=== PATIENT | female | born 1940 ===

== ENCOUNTER 2016-12-29 15:37 | Inpatient (IN) | payer OTHER, MEDICAID ==
[2016-12-29 15:38] VITALS: BMI 29.2
[2016-12-29 16:20] LABS: BASO # 0.2 K/uL (0.0-0.2); BASO % 2.3 % (0.0-2.0); EOS # 0.5 K/uL (0.0-0.7); EOS % 6.9 % (0.0-4.0); HEMATOCRIT 21.1 % (34.0-47.0); LYMPH % 26.6 % (20.0-40.0); MEAN CORPUSCULAR HEMOGLOBIN 16.5 pg (27.0-31.0); MEAN CORPUSCULAR HGB CONC 28.5 g/dL (33.0-37.0); MEAN PLATELET VOLUME 9.2 fl (7.2-11.7); MONO # 0.6 K/uL (0.0-0.8); MONO % 7.5 % (0.0-10.0); NEUT # 4.3 K/uL (1.8-7.0); NEUT % 56.7 % (50.0-75.0); NRBC % 0.1 % (0.0-0.0); RED CELL DISTRIBUTION WIDTH 21.7 % (11.5-14.5); WHITE BLOOD COUNT 7.5 K/uL (4.8-10.8)
[2016-12-29 16:22] LABS: BLOOD UREA NITROGEN 13 mg/dl (7-17); CALCIUM 9.4 mg/dL (8.4-10.2); CARBON DIOXIDE 26 mmol/L (22-30); CHLORIDE 103 mmol/L (98-107); GFR AFRICAN-AMERICAN > 60; GLUCOSE,RANDOM 200 mg/dL (65-105); SODIUM 141 mmol/l (132-148)
[2016-12-29 16:25] LABS: POTASSIUM 3.4 MMOL/L (3.6-5.0)
--- NOTE | 2016-12-29 16:26 | ED PDOC ---
HPI: General Adult Time Seen by Provider: 12/29/16 15:49 Chief Complaint (Nursing): Abnormal Labs Chief Complaint (Provider): Abnormal Labs History Per: Patient History/Exam Limitations: no limitations Onset/Duration Of Symptoms: Mins (prior to arrival) Current Symptoms Are (Timing): Still Present Additional Complaint(s): Ana Hendrix is a 76 year old female with previous medical history of hypercholesterolemia, hypertension, diabetes and COPD, who presents to the emergency department for a blood transfusion evaluation status post receiving call from PCP reporting hemoglobin level of 4 on recent bloodwork and advised to go to hospital for treatment. Patient reported increasing shortness of breath on exertion and positional dizziness but denied chest pain, fever, chills , cough, diarrhea, constipation, vaginal bleeding, dysuria, hematuria, bloody or tarry stools. She also stated that she had prior blood transfusions 9 months ago. PMD: Luis Carlos Liang MD Past Medical History Reviewed: Historical Data, Nursing Documentation, Vital Signs Vital Signs: Last Vital Signs Temp 99.2 F 12/29/16 15:43 Pulse 83 12/29/16 15:43 Resp 16 12/29/16 15:43 BP 142/52 L 12/29/16 15:43 Pulse Ox 99 12/29/16 16:35 - Medical History PMH: Anemia, Anxiety, Asthma, COPD, Depression, Emphysema, HTN, Hypercholesterolemia, Hypothyroidism Denies: Osteoporosis, Chronic Kidney Disease - Surgical History Surgical History: Cholecystectomy Denies: No Surg Hx Other surgeries: tubal ligation - Family History Family History: States: Unknown Family Hx - Social History Current smoker - smoking cessation education provided: No Alcohol: None Drugs: Denies - Home Medications Home Medications: Ambulatory Orders Medication Instructions Recorded Ezetimibe [Zetia] 10 mg PO DAILY 05/12/15 Fluticasone/Salmeterol [Advair 1 puff INH BID 05/12/15 500-50 Diskus] Glimepiride [amaRYL] 2 mg PO BID 05/12/15 Zolpidem [Ambien] 10 mg PO HS PRN 05/12/15 Albuterol Sulfate [Proair Hfa] 2 puff IH Q4H PRN 02/04/16 Alprazolam [Xanax] 1 mg PO QID PRN 02/04/16 Brexpiprazole [Rexulti] 1 mg PO HS 02/04/16 Colesevelam HCl [Welchol] 6 tab PO DAILY 02/04/16 Levothyroxine [Synthroid] 88 mcg PO DAILY 02/04/16 MetFORMIN [glucoPHAGE] 850 mg PO BID 02/04/16 amLODIPine [Norvasc] 2.5 mg PO DAILY 02/04/16 buPROPion XL [Wellbutrin XL] 150 mg PO QAM 02/04/16 Ferrous Sulfate 325 mg PO DAILY #30 tablet 02/07/16 Pantoprazole [Protonix] 40 mg PO DAILY #30 ect 02/07/16 Clindamycin [Cleocin] 300 mg PO QID #40 cap 02/12/16 - Allergies Allergies/Adverse Reactions: Allergies Allergy/AdvReac Type Severity Reaction Status Date / Time No Known Allergies Allergy Verified 05/12/15 18:39 Review of Systems ROS Statement: Except As Marked, All Systems Reviewed And Found Negative Constitutional: Negative for: Fever, Chills Cardiovascular: Negative for: Chest Pain Respiratory: Positive for: SOB with Exertion (increasing). Negative for: Cough Gastrointestinal: Negative for: Diarrhea, Constipation, Melena, Hematochezia Genitourinary Female: Negative for: Dysuria, Hematuria, Vaginal Bleeding Neurological: Positive for: Dizziness (positional) Physical Exam - Reviewed Nursing Documentation Reviewed: Yes Vital Signs Reviewed: Yes - Physical Exam Appears: Positive for: Well, Non-toxic, No Acute Distress Skin: Positive for: Pallor. Negative for: Normal Color Cardiovascular/Chest: Positive for: Regular Rate, Rhythm. Negative for: Chest Non Tender, Murmur Respiratory: Positive for: Respiratory Distress (with upright position). Negative for: Normal Breath Sounds, Crackles, Rales, Rhonchi, Wheezing Gastrointestinal/Abdominal: Positive for: Normal Exam, Bowel Sounds, Soft. Negative for: Tenderness, Guarding, Rebound Neurologic/Psych: Positive for: Alert (and awake), behavior therapist II-XII, Oriented - Laboratory Results Result Diagrams: 12/29/16 16:06 12/29/16 16:06 - ECG O2 Sat by Pulse Oximetry: 99 (RA) Pulse Ox Interpretation: Normal Medical Decision Making Medical Decision Making: Initial Impression: Symptomatic anemia Initial Plan: * Type and screen * EKG * Labs * Chest x-ray * Admit to hospital Time:1610 --Patient will be admitted to hospital under Dr. Pineal's care for blood transfusion. Scribe Attestation: Documented by Delmi Marcano, acting as a scribe for Dee Segovia MD. Provider Scribe Attestation: All medical record entries made by the Scribe were at my direction and personally dictated by me. I have reviewed the chart and agree that the record accurately reflects my personal performance of the history, physical exam, medical decision making, and the department course for this patient. I have also personally directed, reviewed, and agree with the discharge instructions and disposition. case d/w Dr. Liang - admit to telemetry for transfusion. Disposition - Clinical Impression Clinical Impression: Anemia - Patient ED Disposition Is Patient to be Admitted: Yes Doctor Will See Patient In The: Hospital - Disposition Disposition: Transfer of Care Disposition Time: 19:30 Condition: GUARDED Forms: [employer] ([place]) - Pt Status Changed To: Hospital Disposition Of: Inpatient - Admit Certification Admit to Inpatient:: After my assessment, the patient will require hospitalization for at least two midnights. This is because of the severity of symptoms shown, intensity of services needed, and/or the medical risk in this patient being treated as an outpatient. - POA Present On Arrival: None
--- NOTE | 2016-12-29 16:39 | RAD ---
HISTORY: severe anemia COMPARISON: Comparison made with chest radiograph dated 12/29/2016. Comparison also made with CT scan abdomen pelvis and CT scan of the chest dated 02/07/2016 and 11/05/2008 respectively. FINDINGS: LUNGS: Suspect mild bibasilar atelectasis left greater than right. PLEURA: No significant pleural effusion identified, no pneumothorax apparent. CARDIOVASCULAR: Heart appears enlarged. Re- demonstrated is large hiatal hernia. OSSEOUS STRUCTURES: Mild dextroscoliosis centered in the lower thoracic region. VISUALIZED UPPER ABDOMEN: Normal. OTHER FINDINGS: None. IMPRESSION: Mild bibasilar atelectasis left greater than right. Cardiomegaly. Large hiatal hernia.
[2016-12-29 19:50] LABS: IRON 14 ug/dL (37-170)
[2016-12-29] MEDS: Insulin Lispro (humaLOG) 100 Units/ml Inj SC SCH (23:57)
[2016-12-30] MEDS: Insulin Lispro (humaLOG) 100 Units/ml Inj SC SCH ×4 (06:44→22:28)
[2016-12-30 07:22] LABS: RBC URINE < 1 /hpf (0-3); URINE BACTERIA RARE (<OCC); URINE BILIRUBIN NEGATIVE (NEGATIVE); URINE BLOOD NEGATIVE (NEGATIVE); URINE COLOR YELLOW (YELLOW); URINE GLUCOSE (UA) NEG (Normal); URINE KETONE NEGATIVE (NEGATIVE); URINE LEUKOCYTE ESTERASE NEG Leu/uL (Negative); URINE PROTEIN 30 mg/dL (NEGATIVE); URINE UROBILINOGEN 0.2-1.0 mg/dL (0.2-1.0); WBC URINE 1 /hpf (0-5)
[2016-12-30 07:27] LABS: HEMATOCRIT 28.5 % (34.0-47.0); MEAN CELL VOLUME 65.4 fl (81.0-99.0); MEAN CORPUSCULAR HEMOGLOBIN 19.6 pg (27.0-31.0); RED CELL DISTRIBUTION WIDTH 30.5 % (11.5-14.5); WHITE BLOOD COUNT 6.8 K/uL (4.8-10.8)
[2016-12-30 07:34] LABS: ALKALINE PHOSPHATASE 52 U/L (38-126); ALT/SGPT 27 U/L (9-52); AST/SGOT 31 U/L (14-36); BILIRUBIN,TOTAL 1.4 mg/dl (0.2-1.3); BLOOD UREA NITROGEN 13 mg/dl (7-17); CALCIUM 8.7 mg/dL (8.4-10.2); CARBON DIOXIDE 26 mmol/L (22-30); CHLORIDE 104 mmol/L (98-107); CHOLESTEROL 146 mg/dL (0-199); GFR AFRICAN-AMERICAN > 60; GLUCOSE,RANDOM 135 mg/dL (65-105); POTASSIUM 3.9 MMOL/L (3.6-5.0); SODIUM 139 mmol/l (132-148); TOTAL PROTEIN 7.5 G/DL (6.3-8.2)
[2016-12-30 07:53] LABS: T4 9.31 ug/dl (5.5-11.0)
[2016-12-30 08:07] LABS: THYROID STIMULATING HORMONE 7.86 mIU/ML (0.46-4.68)
[2016-12-30] MEDS: Albuterol-Ipratrop 3 mg / 0.5 (3 ml) UD INH SCH ×3 (08:26→19:55)
--- NOTE | 2016-12-30 13:05 | CP.PCM.HP ---
History of Present Illness - History of Present Illness History of Present Illness: 76 y/o F, referred by me to ER [facility] [place] for Hgb in 6 by out side lab on DOA , symptom associated to weakness with no relief. A Critical lab report on DOA showing Pt with continue Hgb 6. There after Pt had 2 U PRBC and eventually Hgb increased to 8.6 and Pt was admitted. Worsening symptoms: C/O of 2-3 weeks with moderate SOB with ZAPATA. Weakness L/E. Aggravated factor: Difficulty to walk 2nd to legs weakness having to stop walking several times for long distances. Pt denied: Fever, chills, CP, Dizziness, syncope, LOC, numbness, n/v/d, abdominal pain, sick contact, recent travel. PMHx: COPD, Emphysema (on CT Chest 03/09/16), HTN, HCL, DMII, Hypothyroidism, Transfusion for anemia 1 yr ago, Hx. GI bleeding, Constipation, Hemorrhoids, Varicose Veins, Insomnia, Depression, Anxiety. Also had Colonoscopy and EGD 4 yrs ago with Dx of Polypectomy benign, Hiatus Hernia and Peptic Ulcer Disease. EKG shows: Normal sinus rhythm. CXR: Mild bibasilar atelectasis L>R, Cardiomegaly, Large Hiatus Hernia Present on Admission - Present on Admission Any Indicators Present on Admission: No Review of Systems - Constitutional Constitutional: Weakness - EENT Eyes: Other (negative) Ears: Other (negative) Nose/Mouth/Throat: Other (negative) - Cardiovascular Cardiovascular: Other (negative) - Respiratory Respiratory: Dyspnea, Dyspnea on Exertion - Gastrointestinal Gastrointestinal: Constipation, Dyspepsia - Genitourinary Genitourinary: Other (negative) - Integumentary Integumentary: Other (negative) - Neurological Neurological: Other (negative) - Psychiatric Psychiatric: Abnormal Sleep Pattern, Anxiety, Depression - Endocrine Endocrine: Other (negative) - Hematologic/Lymphatic Hematologic: Other (anemia) Past Patient History - Infectious Disease Hx of Infectious Diseases: None - Past Medical History & Family History Past Medical History?: Yes Pertinent Family History: Grand Father: ETOH dependence. Sister and daughter: Anxiety. - Past Social History Smoking Status: Former Smoker Alcohol: None Drugs: Denies Home Situation {Lives}: With Family - CARDIAC Hx Cardiac Disorders: Yes Hx Hypercholesterolemia: Yes Hx Hypertension: Yes - PULMONARY Hx Respiratory Disorders: Yes Hx Asthma: Yes Hx Chronic Obstructive Pulmonary Disease (COPD): Yes Hx Emphysema: Yes - NEUROLOGICAL Hx Neurological Disorder: No - HEENT Hx HEENT Problems: No - RENAL Hx Chronic Kidney Disease: No - ENDOCRINE/METABOLIC Hx Endocrine Disorders: Yes Hx Diabetes Mellitus Type 2: Yes - HEMATOLOGICAL/ONCOLOGICAL Hx Blood Disorders: Yes Hx Anemia: Yes Hx Blood Transfusions: Yes - INTEGUMENTARY Hx Dermatological Problems: No - MUSCULOSKELETAL/RHEUMATOLOGICAL Hx Musculoskeletal Disorders: No Hx Falls: No - GASTROINTESTINAL Hx Gastrointestinal Disorders: Yes Hx Constipation: Yes Hx Diarrhea: Yes Hx Ulcer: Yes (PUD) - GENITOURINARY/GYNECOLOGICAL Hx Genitourinary Disorders: No - PSYCHIATRIC Hx Psychophysiologic Disorder: Yes (Insomnia.) Hx Anxiety: Yes Hx Depression: Yes Hx Substance Use: No - SURGICAL HISTORY Hx Surgeries: Yes Hx Cholecystectomy: Yes - ANESTHESIA Hx Anesthesia: Yes Hx Anesthesia Reactions: No Hx Malignant Hyperthermia: No Meds Allergies/Adverse Reactions: Allergies Allergy/AdvReac Type Severity Reaction Status Date / Time No Known Allergies Allergy Verified 05/12/15 18:39 Physical Exam - Constitutional Appears: No Acute Distress - Head Exam Head Exam: NORMAL INSPECTION - Eye Exam Eye Exam: PERRL - ENT Exam ENT Exam: Normal Exam - Neck Exam Neck exam: Positive for: Normal Inspection - Respiratory Exam Respiratory Exam: Rhonchi (few at bases) - Cardiovascular Exam Cardiovascular Exam: REGULAR RHYTHM, Systolic Murmur (1/6 LSB) - GI/Abdominal Exam GI & Abdominal Exam: Normal Bowel Sounds, Soft. absent: Guarding, Rebound - Extremities Exam Additional comments: Varicose Veins. - Neurological Exam Neurological exam: Alert, Oriented x3 Additional comments: Moves all extremities, pedal pulse 2+ - Psychiatric Exam Psychiatric exam: Normal Mood - Skin Skin Exam: Warm Results - Vital Signs Recent Vital Signs: Last Vital Signs Temp 98.4 F 12/30/16 12:00 Pulse 65 12/30/16 12:00 Resp 18 12/30/16 12:00 BP 146/68 12/30/16 12:00 Pulse Ox 94 L 12/30/16 12:00 yolis Ma - Labs Result Diagrams: 12/31/16 06:00 12/30/16 06:00 Labs: Laboratory Results - last 24 hr 12/29/16 12/29/16 12/29/16 19:07 19:20 23:41 WBC RBC Hgb Hct MCV MCH MCHC RDW Plt Count Sodium Potassium Chloride Carbon Dioxide Anion Gap BUN Creatinine Est GFR ( Amer) Est GFR (Non-Af Amer) POC Glucose (mg/dL) 140 H Random Glucose Calcium Iron 14 L TIBC 462 H % Saturation 3 L Ferritin 4.0 Total Bilirubin AST ALT Alkaline Phosphatase Total Protein Albumin Globulin Albumin/Globulin Ratio Triglycerides Cholesterol LDL Cholesterol Direct HDL Cholesterol Vitamin B12 651 Thyroxine (T4) TSH 3rd Generation Urine Color Urine Clarity Urine pH Ur Specific [place] Urine Protein Urine Glucose (UA) Urine Ketones Urine Blood Urine Nitrate Urine Bilirubin Urine Urobilinogen Ur Leukocyte Esterase Urine RBC (Auto) Urine Microscopic WBC Ur Squamous Epith Cells Urine Bacteria 12/30/16 12/30/16 12/30/16 05:12 06:00 06:00 WBC 6.8 RBC 4.36 Hgb 8.6 L D Hct 28.5 L MCV 65.4 L D MCH 19.6 L MCHC 30.0 L RDW 30.5 H Plt Count 214 Sodium 139 Potassium 3.9 Chloride 104 Carbon Dioxide 26 Anion Gap 13 BUN 13 Creatinine 0.6 L Est GFR ( Amer) > 60 Est GFR (Non-Af Amer) > 60 POC Glucose (mg/dL) 148 H Random Glucose 135 H Calcium 8.7 Iron TIBC % Saturation Ferritin Total Bilirubin 1.4 H AST 31 ALT 27 Alkaline Phosphatase 52 Total Protein 7.5 Albumin 3.8 Globulin 3.7 Albumin/Globulin Ratio 1.0 Triglycerides 81 D Cholesterol 146 LDL Cholesterol Direct 91 HDL Cholesterol 38 Vitamin B12 Thyroxine (T4) 9.31 TSH 3rd Generation 7.86 H Urine Color Urine Clarity Urine pH Ur Specific [place] Urine Protein Urine Glucose (UA) Urine Ketones Urine Blood Urine Nitrate Urine Bilirubin Urine Urobilinogen Ur Leukocyte Esterase Urine RBC (Auto) Urine Microscopic WBC Ur Squamous Epith Cells Urine Bacteria 12/30/16 12/30/16 06:50 10:51 WBC RBC Hgb Hct MCV MCH MCHC RDW Plt Count Sodium Potassium Chloride Carbon Dioxide Anion Gap BUN Creatinine Est GFR ( Amer) Est GFR (Non-Af Amer) POC Glucose (mg/dL) 161 H Random Glucose Calcium Iron TIBC % Saturation Ferritin Total Bilirubin AST ALT Alkaline Phosphatase Total Protein Albumin Globulin Albumin/Globulin Ratio Triglycerides Cholesterol LDL Cholesterol Direct HDL Cholesterol Vitamin B12 Thyroxine (T4) TSH 3rd Generation Urine Color Yellow Urine Clarity Slighty-cloudy Urine pH 5.0 Ur Specific [place] 1.016 Urine Protein 30 Urine Glucose (UA) Neg Urine Ketones Negative Urine Blood Negative Urine Nitrate Negative Urine Bilirubin Negative Urine Urobilinogen 0.2-1.0 Ur Leukocyte Esterase Neg Urine RBC (Auto) < 1 Urine Microscopic WBC 1 Ur Squamous Epith Cells 1 Urine Bacteria Rare reviewed J.P. - EKG Data EKG comments: reviewed J.P. - Imaging and Cardiology Chest x-ray Status: Report reviewed by me (Loren.) Assessment & Plan (1) Anemia Status: Acute Priority: High Comment: 2nd to GI bleeding (2) History of peptic ulcer disease Status: Acute (3) Diabetes mellitus with hyperglycemia Status: Chronic Priority: High (4) COPD (chronic obstructive pulmonary disease) Status: Chronic Priority: Medium (5) Hypertension Status: Chronic Priority: Medium (6) Hypothyroidism Status: Chronic Priority: Medium - Assessment and Plan (Free Text) Plan: Continue Venofer IV, Protonix IV, Duoneb, f/u CBC, GI Consult, - Date & Time Date: 12/30/16 Time: 11:30
[2016-12-30] MEDS ORDERED: Insulin Lispro (humaLOG) 100 Units/ml Inj SC SCH (17:00)
--- NOTE | 2016-12-30 21:10 | CARD ---
APPROVED REPORT EKG Measurement Heart [id number] <Conclusion> Normal sinus rhythm Normal ECG
[2016-12-31] MEDS: Levothyroxine 100 MCG TAB PO SCH (06:00)
[2016-12-31] MEDS: Insulin Lispro (humaLOG) 100 Units/ml Inj SC SCH ×4 (06:57→21:40)
[2016-12-31] MEDS: Albuterol-Ipratrop 3 mg / 0.5 (3 ml) UD INH SCH ×3 (07:34→19:08)
[2016-12-31 08:20] LABS: HEMATOCRIT 28.1 % (34.0-47.0); MEAN CELL VOLUME 65.1 fl (81.0-99.0); MEAN CORPUSCULAR HEMOGLOBIN 19.9 pg (27.0-31.0); MEAN CORPUSCULAR HGB CONC 30.6 g/dL (33.0-37.0); RED CELL DISTRIBUTION WIDTH 30.5 % (11.5-14.5); WHITE BLOOD COUNT 7.6 K/uL (4.8-10.8)
--- NOTE | 2016-12-31 14:33 | CP.PCM.PN ---
Subjective - Date & Time of Evaluation Date of Evaluation: 12/31/16 Time of Evaluation: 11:30 - Subjective Subjective: No AD , no Abdominal pain , no SOB , no ZAPATA Objective - Vital Signs/Intake and Output Vital Signs (last 24 hours): Temp Pulse Resp BP Pulse Ox 97.9 F 74 18 139/65 94 L 12/31/16 12:00 12/31/16 12:00 12/31/16 12:00 12/31/16 12:00 12/31/16 12:00 - Medications Medications: Current Medications Albuterol/Ipratropium (Duoneb 3 Mg/0.5 Mg (3 Ml) Ud) 3 ml INH RTID [facility] Last Admin: 12/31/16 14:00 Dose: 3 ml Epoetin Meño (Procrit) 10,000 unit SC MWF [facility] Iron Sucrose 100 mg/ Sodium (Chloride) 105 mls @ 105 mls/hr IVPB DAILY [facility] Last Admin: 12/31/16 10:46 Dose: 105 mls/hr Insulin Human Lispro (Humalog) 0 units SC ACHS [facility] PRN Reason: Protocol Last Admin: 12/31/16 13:05 Dose: 3 u Lactulose (Enulose) 20 gm PO DAILY PRN PRN Reason: Constipation Levothyroxine Sodium (Synthroid) 100 mcg PO DAILY@0630 [facility] Last Admin: 12/31/16 06:00 Dose: 100 mcg Pantoprazole Sodium (Protonix Inj) 40 mg IVP DAILY [facility] Last Admin: 12/31/16 10:45 Dose: 40 mg - Labs Labs: 12/31/16 06:00 12/30/16 06:00 - Constitutional Appears: No Acute Distress - Head Exam Head Exam: NORMAL INSPECTION - Eye Exam Eye Exam: PERRL - ENT Exam ENT Exam: Normal Exam - Neck Exam Neck Exam: Normal Inspection - Respiratory Exam Respiratory Exam: Rhonchi (few at bases) - Cardiovascular Exam Cardiovascular Exam: REGULAR RHYTHM, Murmur (sm 1/6 LSB) - GI/Abdominal Exam GI & Abdominal Exam: Soft, Normal Bowel Sounds. absent: Guarding, Tenderness, Rebound - Extremities Exam Additional comments: Vaaricose Veins, DP pedal pulses 2+ - Neurological Exam Neurological Exam: Alert, CN II-XII Intact, Oriented x3 Additional comments: moves all extremities - Psychiatric Exam Psychiatric exam: Normal Affect, Normal Mood Assessment and Plan (1) Anemia Status: Acute (2) History of peptic ulcer disease Status: Suspected (3) GI bleeding Status: Chronic (4) Diabetes mellitus Status: Acute (5) COPD (chronic obstructive pulmonary disease) Status: Chronic (6) Bronchial asthma Status: Chronic (7) HTN (hypertension) Status: Chronic (8) Hypothyroidism Status: Chronic - Assessment and Plan (Free Text) Plan: Anemia Iron Def,suspect GI bleeding, GI consult appreciated , f/u CBC am, Continue Venofer , Procrit
--- NOTE | 2016-12-31 23:52 | CON ---
DATE: 12/31/2016 REASON FOR CONSULTATION: Anemia. HISTORY OF PRESENT ILLNESS: This is a 76-year-old female with history of hypercholesterolemia, hypertension, diabetes, COPD and she was brought here by the primary care provider to the ER because the primary care office had found the hemoglobin was low and status post transfusion. The patient has no evidence of bleeding, hematemesis, hematochezia. No new GI symptoms. No weight loss. No constipation. Currently lying in bed comfortably in no apparent distress. PAST MEDICAL HISTORY: As above. PAST SURGICAL HISTORY: As above. MEDICATIONS: Have been reviewed. REVIEW OF SYSTEMS: All other systems have been reviewed and negative apart from the HPI. PHYSICAL EXAMINATION: GENERAL: A pleasant elderly appearing female lying in bed comfortable, in no apparent distress. VITAL SIGNS: In the hospital were grossly remarkable. HEENT: Head is normocephalic and atraumatic. Eyes: Pupils are equally round and reactive to light bilaterally. No conjunctival pallor or icterus. NECK: Supple. Normal range of motion. No lymphadenopathy appreciated. LUNGS: Coarse breath sounds bilaterally. HEART: S1 and S2. Regular rate and rhythm. No murmurs appreciated. ABDOMEN: Soft, nontender. Bowel sounds present. No rebound. No guarding. RECTAL: Deferred. EXTREMITIES: Pulses felt bilaterally. SKIN: Warm, dry and intact. NEUROLOGIC: A and O x3. LABORATORY DATA: Labs reviewed. WBC 7.5, hemoglobin 6.1, now is 8.6 after the transfusion. Platelet count is 209 Iron levels of 14. ASSESSMENT AND PLAN: This is a 76-year-old female with chronic anemia. There is no evidence of active or recent gastrointestinal bleeding. She is on iron at home; therefore, I suspect this is all chronic anemia, last colonoscopy was 4 years ago, and she is due for next year. From gastrointestinal standpoint, this is nonemergent endoscopic workup which can be followed up in the office which she agrees to do. For now, advance diet as tolerated. Discharge planning with close followup with me and the primary care team. Thank you for the consult. Wesley De Jesus MD/ PhD CC: Luis Carlos Liang MD. [facility] # [id number] [place]
[2017-01-01] MEDS: Levothyroxine 100 MCG TAB PO SCH (06:07)
[2017-01-01 07:01] LABS: HEMATOCRIT 28.1 % (34.0-47.0); MEAN CORPUSCULAR HEMOGLOBIN 20.4 pg (27.0-31.0); MEAN CORPUSCULAR HGB CONC 31.7 g/dL (33.0-37.0); RED CELL DISTRIBUTION WIDTH 30.4 % (11.5-14.5); WHITE BLOOD COUNT 8.3 K/uL (4.8-10.8)
[2017-01-01 07:31] LABS: MEAN CELL VOLUME 64.6 fl (81.0-99.0)
[2017-01-01 07:37] LABS: BLOOD UREA NITROGEN 10 mg/dl (7-17); CALCIUM 9.4 mg/dL (8.4-10.2); CARBON DIOXIDE 26 mmol/L (22-30); CHLORIDE 102 mmol/L (98-107); GFR AFRICAN-AMERICAN > 60; GLUCOSE,RANDOM 136 mg/dL (65-105); POTASSIUM 3.9 MMOL/L (3.6-5.0); SODIUM 138 mmol/l (132-148)
[2017-01-01] MEDS: Albuterol-Ipratrop 3 mg / 0.5 (3 ml) UD INH SCH ×2 (07:49→13:55)
[2017-01-01] MEDS ORDERED: EPOETIN ALFA 10,000 UNIT/ML ML SC SCH (09:00)
[2017-01-01] MEDS: Insulin Lispro (humaLOG) 100 Units/ml Inj SC SCH ×2 (09:13→12:15)
[2017-01-01 12:12] VITALS: O2SAT 96
[2017-01-01 15:35] VITALS: BP 135/65; PULSE 79; RESP 20; TEMP 97.7
--- NOTE | 2017-01-01 15:50 | CP.PCM.PN ---
Subjective - Date & Time of Evaluation Date of Evaluation: 01/01/17 Time of Evaluation: 13:00 - Subjective Subjective: F/U Anemia. No SOB, no chest congestion, no abdominal pain. Objective - Vital Signs/Intake and Output Vital Signs (last 24 hours): Temp Pulse Resp BP Pulse Ox 97.7 F 79 20 135/65 96 01/01/17 15:35 01/01/17 15:35 01/01/17 15:35 01/01/17 15:35 01/01/17 15:35 - Medications Medications: Current Medications Albuterol/Ipratropium (Duoneb 3 Mg/0.5 Mg (3 Ml) Ud) 3 ml INH RTID [facility] Last Admin: 01/01/17 13:55 Dose: 3 ml Amlodipine Besylate (Norvasc) 2.5 mg PO DAILY [facility] Last Admin: 01/01/17 09:16 Dose: 2.5 mg Epoetin Meño (Procrit) 10,000 unit SC MWF [facility] Last Admin: 01/01/17 09:17 Dose: 10,000 unit Iron Sucrose 100 mg/ Sodium (Chloride) 105 mls @ 105 mls/hr IVPB DAILY [facility] Last Admin: 01/01/17 09:16 Dose: 105 mls/hr Insulin Human Lispro (Humalog) 0 units SC ACHS [facility] PRN Reason: Protocol Last Admin: 01/01/17 12:15 Dose: 1 u Lactulose (Enulose) 20 gm PO DAILY PRN PRN Reason: Constipation Levothyroxine Sodium (Synthroid) 100 mcg PO DAILY@0630 [facility] Last Admin: 01/01/17 06:07 Dose: 100 mcg Pantoprazole Sodium (Protonix Inj) 40 mg IVP DAILY [facility] Last Admin: 01/01/17 09:15 Dose: 40 mg - Labs Labs: 01/01/17 05:30 01/01/17 05:30 - Constitutional Appears: No Acute Distress - Head Exam Head Exam: NORMAL INSPECTION - Eye Exam Eye Exam: PERRL - ENT Exam ENT Exam: Normal Exam - Respiratory Exam Respiratory Exam: Decreased Breath Sounds (b/l) - Cardiovascular Exam Cardiovascular Exam: REGULAR RHYTHM, Murmur (1/6 LSB) - GI/Abdominal Exam GI & Abdominal Exam: Soft, Normal Bowel Sounds - Extremities Exam Additional comments: Varicose veins, DP pedal pulse 2+ - Neurological Exam Neurological Exam: Alert, Oriented x3. absent: Motor Sensory Deficit - Psychiatric Exam Psychiatric exam: Normal Mood - Skin Skin Exam: Normal Color, Warm Assessment and Plan (1) Anemia Status: Acute (2) History of peptic ulcer disease Status: Suspected (3) GI bleeding Status: Chronic (4) Diabetes mellitus Status: Acute (5) COPD (chronic obstructive pulmonary disease) Status: Chronic (6) Bronchial asthma Status: Chronic (7) HTN (hypertension) Status: Chronic (8) Hypothyroidism Status: Chronic - Assessment and Plan (Free Text) Plan: Hgb 8.9 Pt improved and stable to be discharged, continue Protonix, Feosol , call GI for Colonoscopy as out PT, f/u with PMD in a week.
[2017-01-01] MEDS ORDERED: Albuterol HFA 90 mcg/actuation (8 g) IH PRN (16:33)
[2017-01-01] MEDS ORDERED: Fluticasone-Salmeterol 500-50mcg Diskus INH SCH (17:00)
[2017-01-01] MEDS ORDERED: GlipiZIDE 5 mg SR Tab PO SCH (17:00)
[2017-01-01 17:31] LABS: FOLATE 13.6 ng/mL
[2017-01-02] MEDS ORDERED: Levothyroxine 88 MCG TAB PO SCH (06:30)
[2017-01-02] MEDS ORDERED: COLESEVELAM HCL PO SCH (09:00)
[2017-01-03 04:13] LABS: MICROALBUMIN 11.6 mg/dL
--- NOTE | 2017-01-11 13:51 | CP.PCM.DIS ---
Provider - Provider Date of Admission: 12/29/16 19:04 Attending physician: Luis Carlos Liang MD Consults: Gastroenterology. Time Spent in preparation of Discharge (in minutes): 25 Diagnosis - Discharge Diagnosis (1) Anemia Status: Acute Priority: High (2) History of peptic ulcer disease Status: Suspected (3) GI bleeding Status: Chronic Priority: High (4) Diabetes mellitus Status: Acute (5) COPD (chronic obstructive pulmonary disease) Status: Chronic (6) Bronchial asthma Status: Chronic (7) HTN (hypertension) Status: Chronic (8) Hypothyroidism Status: Chronic Hospital Course - Lab Results Lab Results: Most Recent Lab Values WBC 8.3 K/uL (4.8-10.8) 01/01/17 05:30 RBC 4.35 Mil/uL (3.80-5.20) 01/01/17 05:30 Hgb 8.9 g/dL (12.0-16.0) L 01/01/17 05:30 Hct 28.1 % (34.0-47.0) L 01/01/17 05:30 MCV 64.6 fl (81.0-99.0) L 01/01/17 05:30 MCH 20.4 pg (27.0-31.0) L 01/01/17 05:30 MCHC 31.7 g/dL (33.0-37.0) L 01/01/17 05:30 RDW 30.4 % (11.5-14.5) H 01/01/17 05:30 Plt Count 219 K/uL (130-400) 01/01/17 05:30 MPV 9.2 fl (7.2-11.7) 12/29/16 16:06 Neut % (Auto) 56.7 % (50.0-75.0) 12/29/16 16:06 Lymph % (Auto) 26.6 % (20.0-40.0) 12/29/16 16:06 [place] % (Auto) 7.5 % (0.0-10.0) 12/29/16 16:06 Eos % (Auto) 6.9 % (0.0-4.0) H 12/29/16 16:06 Baso % (Auto) 2.3 % (0.0-2.0) H 12/29/16 16:06 Neut # 4.3 K/uL (1.8-7.0) 12/29/16 16:06 Lymph # 2.0 K/uL (1.0-4.3) 12/29/16 16:06 [place] # 0.6 K/uL (0.0-0.8) 12/29/16 16:06 Eos # 0.5 K/uL (0.0-0.7) 12/29/16 16:06 Baso # 0.2 K/uL (0.0-0.2) 12/29/16 16:06 Sodium 138 mmol/l (132-148) 01/01/17 05:30 Potassium 3.9 MMOL/L (3.6-5.0) 01/01/17 05:30 Chloride 102 mmol/L (98-107) 01/01/17 05:30 Carbon Dioxide 26 mmol/L (22-30) 01/01/17 05:30 Anion Gap 14 (10-20) 01/01/17 05:30 BUN 10 mg/dl (7-17) 01/01/17 05:30 Creatinine 0.6 mg/dL (0.7-1.2) L 01/01/17 05:30 Est GFR ( Amer) > 60 01/01/17 05:30 Est GFR (Non-Af Amer) > 60 01/01/17 05:30 POC Glucose (mg/dL) 221 mg/dL (65-110) H 01/01/17 15:44 Random Glucose 136 mg/dL (65-105) H 01/01/17 05:30 Hemoglobin A1c 7.0 % (4.2-6.5) H 12/30/16 06:00 Calcium 9.4 mg/dL (8.4-10.2) 01/01/17 05:30 Iron 14 ug/dL (37-170) L 12/29/16 19:20 TIBC 462 ug/dL (250-450) H 12/29/16 19:20 % Saturation 3 % (20-55) L 12/29/16 19:20 Ferritin 4.0 ng/mL 12/29/16 19:07 Total Bilirubin 1.4 mg/dl (0.2-1.3) H 12/30/16 06:00 AST 31 U/L (14-36) 12/30/16 06:00 ALT 27 U/L (9-52) 12/30/16 06:00 Alkaline Phosphatase 52 U/L (38-126) 12/30/16 06:00 Total Protein 7.5 G/DL (6.3-8.2) 12/30/16 06:00 Albumin 3.8 g/dL (3.5-5.0) 12/30/16 06:00 Globulin 3.7 gm/dL (2.2-3.9) 12/30/16 06:00 Albumin/Globulin Ratio 1.0 (1.0-2.1) 12/30/16 06:00 Triglycerides 81 mg/DL (0-149) D 12/30/16 06:00 Cholesterol 146 mg/dL (0-199) 12/30/16 06:00 LDL Cholesterol Direct 91 mg/dL (0-129) 12/30/16 06:00 HDL Cholesterol 38 MG/DL (30-70) 12/30/16 06:00 Vitamin B12 651 pg/mL (239-931) 12/29/16 19:07 Folate 13.6 ng/mL 12/29/16 19:07 RBC Folate 1007 ng/mL RBC (>280) 12/29/16 19:08 Thyroxine (T4) 9.31 ug/dl (5.5-11.0) 12/30/16 06:00 TSH 3rd Generation 7.86 mIU/ML (0.46-4.68) H 12/30/16 06:00 Urine Color Yellow (YELLOW) 12/30/16 06:50 Urine Clarity Slighty-cloudy (Clear) 12/30/16 06:50 Urine pH 5.0 (5.0-8.0) 12/30/16 06:50 Ur Specific [place] 1.016 (1.003-1.030) 12/30/16 06:50 Urine Protein 30 mg/dL (NEGATIVE) 12/30/16 06:50 Urine Glucose (UA) Neg mg/dL (Normal) 12/30/16 06:50 Urine Ketones Negative mg/dL (NEGATIVE) 12/30/16 06:50 Urine Blood Negative (NEGATIVE) 12/30/16 06:50 Urine Nitrate Negative (NEGATIVE) 12/30/16 06:50 Urine Bilirubin Negative (NEGATIVE) 12/30/16 06:50 Urine Urobilinogen 0.2-1.0 mg/dL (0.2-1.0) 12/30/16 06:50 Ur Leukocyte Esterase Neg [place]/uL (Negative) 12/30/16 06:50 Urine RBC (Auto) < 1 /hpf (0-3) 12/30/16 06:50 Urine Microscopic WBC 1 /hpf (0-5) 12/30/16 06:50 Ur Squamous Epith Cells 1 /hpf (0-5) 12/30/16 06:50 Urine Bacteria Rare (<OCC) 12/30/16 06:50 Urine Creatinine 80 mg/dL (20-320) 12/30/16 17:14 Urine Microalbumin 11.6 mg/dL 12/30/16 17:14 Microalb/Creat Ratio 145 (<30) H 12/30/16 17:14 Blood Type AB POSITIVE 12/29/16 16:00 Antibody Screen Negative 12/29/16 16:00 Crossmatch See Detail 12/29/16 16:00 BBK History Checked Patient has bt 12/29/16 16:00 - Date & Time of H&P Date of H&P: 12/30/16 Time of H&P: 11:30 Discharge Exam - Head Exam Head Exam: NORMAL INSPECTION Discharge Plan - Follow Up Plan Condition: GUARDED Disposition: HOME/ ROUTINE Patient education suggested?: Yes Instructions: Iron Rich Diet (DC), Anemia (DC)
== END 2017-01-01 16:50 | disposition home or self-care (01) | DRG 812 ==
LOC: H.ER 15:37 → H.ERHOLD 19:04 → H.TEL 21:19
PROVIDERS: ADMIT Internal Medicine Pulmonary Disease; ATTEND Internal Medicine Pulmonary Disease
PROC: 30233N1 Transfusion of Nonautologous Red Blood Cells into Peripheral Vein, Percutaneous Approach (ICD-10-PCS; principal; 2016-12-29)
DX: D50.0 Iron deficiency anemia secondary to blood loss (chronic) (principal); E11.65 Type 2 diabetes mellitus with hyperglycemia; K92.2 Gastrointestinal hemorrhage, unspecified; J43.9 Emphysema, unspecified; E03.9 Hypothyroidism, unspecified; E78.00 Pure hypercholesterolemia, unspecified; J45.909 Unspecified asthma, uncomplicated; I10 Essential (primary) hypertension; F41.9 Anxiety disorder, unspecified; Z87.11 Personal history of peptic ulcer disease